=== PATIENT | female | born 1980 | race Caucasian/White ===

== ENCOUNTER 2019-04-18 12:12 | Emergency (ER) | payer MEDICARE, MEDICAID ==
[2019-04-18 13:11] VITALS: BP 113/68
[2019-04-18] MEDS ORDERED: Tetan/Diph/Pertus SYR(Tdap)* 0.5 ML SYR(BOOSTRIX) use SYR IM ONE (13:13)
--- NOTE | 2019-04-18 13:23 | UC ---
Laceration HPI - HPI Summary HPI Summary: 38 yo female presents with left index finger laceration. She tells me that about 1 MANAGER TALENT she sliced her left index finger while using a utility blade. Bandaged the area and came to . Last tetanus was last year. - History Of Current Complaint Chief Complaint: UCLaceration Stated Complaint: LACERATION LT INDEX FINGER Time Seen by Provider: 04/18/19 13:21 Hx Obtained From: Patient Hx Last Menstrual Period: 07/23/16 Laceration Location: Finger Mechanism Of Injury: Sharp Trauma Onset/Duration: Sudden Onset Severity: Mild Pain Intensity: 4 Pain Scale Used: 0-10 Numeric - Allergies/Home Medications Allergies/Adverse Reactions: Allergies Allergy/AdvReac Type Severity Reaction Status Date / Time MS Latex [Latex] Allergy Intermediate Rash Verified 04/18/19 13:11 Home Medications: Home Medications Fluticasone/Vilanterol MDI(NF) [Breo Ellipta MDI (NF)] 1 puff INH DAILY [History Confirmed 04/18/19] Levocetirizine Dihydrochloride [Xyzal Allergy 24Hr] 5 mg PO DAILY 04/18/19 [ History Confirmed 04/18/19] Topiramate [Topamax] 100 mg PO BID 04/18/19 [History Confirmed 04/18/19] PMH/Surg Hx/FS Hx/Imm Hx Respiratory History: Asthma - Surgical History Surgical History: Yes Surgery Procedure, Year, and Place: Gastric bypass 2010,. T&A. vein removal with cyst removed from L upper leg. - Family History Known Family History: Positive: Hypertension - Social History Lives: With Family Alcohol Use: Occasionally Substance Use Type: None Smoking Status (MU): Never Smoked Tobacco - Immunization History Most Recent Influenza Vaccination: Fall 2014 Most Recent Pneumonia Vaccination: 07/2015 Review of Systems All Other Systems Reviewed And Are Negative: Yes Constitutional: Positive: Negative Skin: Positive: Other - finger laceration Respiratory: Positive: Negative Cardiovascular: Positive: Negative Musculoskeletal: Positive: Negative Neurological: Positive: Negative Psychological: Positive: Negative Physical Exam - Summary Physical Exam Summary: GENERAL: NAD. WDWN. No pain distress. SKIN: LEFT index finger: distal tip with 5mm very superficial linear laceration well approximated at rest. No active bleeding, depth, or width appreciated. CHEST: No accessory muscle use. Breathing comfortably and in no distress. CV: Pulses intact. Cap refill <2seconds NEURO: Alert. PSYCH: Age appropriate behavior. Triage Information Reviewed: Yes Vital Signs: Initial Vital Signs Temp 97.9 F 04/18/19 13:06 Pulse 72 04/18/19 13:06 Resp 16 04/18/19 13:06 BP 113/68 04/18/19 13:06 Pulse Ox 100 04/18/19 13:06 Vital Signs Reviewed: Yes Laceration Repair - Laceration Repair 1 Description: Linear Laceration Size After Repair: Length (cm) - 0.5 Modified For Repair: No Cleansing Completed Via Routine Prep: Yes Closure Material: Skin Adhesive Closure Method: Single Layer Suture Of: Skin Laceration Course/Dx - Course/Dx Course Of Treatment: Wound was cleansed with NS and dermabond applied as wound is very superficial just partially through the epidermis. Band-aid applied. - Diagnosis Provider Diagnosis: Laceration of left index finger Discharge - Sign-Out/Discharge Documenting (check all that apply): Patient Departure All imaging exams completed and their final reports reviewed: No Studies - Discharge Plan Condition: Stable Disposition: HOME Patient Education Materials: Laceration (ED), Skin Adhesive Care (ED) Referrals: Jim Gilliland [Primary Care Provider] - Additional Instructions: If you develop a fever, shortness of breath, chest pain, new or worsening symptoms - please call your PCP or go to the ED immediately. Change the band-aid daily until well healed (likely 3-5 days) - Billing Disposition and Condition Condition: STABLE Disposition: Home
--- OUTSIDE RECORDS SUMMARY | 2019-04-18 18:07 | XMS REPORT | Continuity of Care Document ---
:1980 External Reference #:[id number] Author Name Fuad Potts MD Address [address] [place] [address] Care Team Providers Name Role Phone Blayne Patel NP - Nurse Practitioner Care Team Information [place] Problems Description No Information Available Social History Type Date Description Comments Sex Unknown Tobacco Use Start: Unknown Never Smoked Cigarettes ETOH Use Currently consumes alcohol socially Recreational Drug Use Never Used Drugs Tobacco Use Start: Unknown Patient has never smoked Smoking Status Reviewed: 04/13/19 Patient has never smoked Exercise Type/Frequency Does not exercise Allergies, Adverse Reactions, Alerts Active Allergies Reaction Severity Comments Date Augmentin yeast infection 04/13/2019 Latex 04/13/2019 Medications Active Medications SIG Qnty Indications Ordering Date Provider Mometasone Furoate one spray each Unknown 50mcg/Act nostril every day Suspension as needed Trazodone HCL 1 tab by mouth Unknown 50mg Tablets every day as needed Tizanidine HCL 1 by mouth three Unknown 4mg Capsules times a day as needed mdd 3 Levocetirizine 1 po daily Unknown Dihydrochloride 5mg Tablets Benadryl Allergy 1-2 by mouth Unknown 25mg Tablets every 6 hours as needed for hives. Coouitcmjk-Afwuczf-Kflcp 1 tab every 4 Unknown ine hours as needed 50-325-40mg Capsules for bagley. reference #: [id number] Breo Ellipta take 1 puff once Unknown 200-25mcg/Inh daily. Aerosol Gabapentin take one capsule Unknown 400mg Capsules by mouth three times a day Topiramate 1 po twice daily Unknown 100mg Tablets Proair HFA take 2 puffs Unknown 108(90Base) every 6 hours as mcg/Act Aerosol needed for shortness of breath. Duloxetine HCL 1 by mouth every Unknown 60mg Caps DR day Part Immunizations Description No Information Available Vital Signs Date Vital Result Comment 04/13/2019 2:32pm BP Systolic Sitting Left Arm 112 mmHg BP Diastolic Sitting Left Arm 72 mmHg Heart Rate 80 /min Respiratory Rate 20 /min Height 68 inches 5'8" Weight 196.00 lb BMI (Body Mass Index) 29.8 kg/m2 BSA (Body Surface Area) 2.03 m2 [place] body weight in kilograms 63 kg 04/13/2019 2:24pm BP Systolic Sitting Left Arm 110 mmHg BP Diastolic Sitting Left Arm 72 mmHg Heart Rate 80 /min Respiratory Rate 20 /min Height 68 inches 5'8" Weight 196.00 lb BMI (Body Mass Index) 29.8 kg/m2 BSA (Body Surface Area) 2.03 m2 [place] body weight in kilograms 63 kg O2 Saturation Level with Exercise 98 % Results Test Date Facility Test Result H/L Range Note Laboratory test 04/13/2019 [facility] D-Dimer, 0.44 ug/mL 1, [address] [place] [address] [phone] 1 Z01.818 2 <=0.49 ug/mL - Low likelihood of DIC, DVT or Pulmonary Embolism >0.49 ug/mL - Additional testing should be done to rule out DIC, DVT, or Pulmonary embolism as clinically indicated. ([facility] has established a 97.89% negative predictive value for thrombotic disease when a cutoff value of 0.5 ug/mL is used.) Procedures Date Code Description Status 04/13/2019 95719 EKG-Tracing And Report Completed Medical Devices Description No Information Available Encounters Description No Information Available Assessments Date Code Description Provider 04/13/2019 J45.20 Mild intermittent asthma, uncomplicated Fuad Potts MD 04/13/2019 J30.89 Other allergic rhinitis Fuad Potts MD 04/13/2019 R07.9 Chest pain, unspecified Fuad Potts MD 04/13/2019 Z01.818 Encounter for other preprocedural examination Fuad Potts MD Plan of Treatment Future Appointment(s):06/13/2019 1:30 pm - Fuad Potts MD at [facility] /2019 - Fuad Potts MDJ45.20 Mild intermittent asthma, uncomplicatedNew Orders :PFT With Bronchodilator, Scheduled: 04/27/19Comments:I am checking full PFTs. Continue with Breo and as needed albuterol. Advised to rinse mouth after using Breo to prevent thrush.Follow up:2 months.J30.89 Other allergic rhinitisComments :Minimal symptoms, continue with as needed nasal mometasone. Follows with Dr. Davy Colón.R07.9 Chest pain, unspecifiedComments:EKG is normal. Suspicion for PE is quite low, I am going to check a D-Dimer. This may be related to asthma and/or costochondritis. For now I am going to see if her symptoms improve on Breo and if not then I recommend a trial of NSAID and possibly cardiology consultation.Z01.818 Encounter for other preprocedural examination Functional Status Description No Information Available Mental Status Description No Information Available Referrals Description No Information Available
--- OUTSIDE RECORDS SUMMARY | 2019-04-18 18:07 | XMS REPORT | Continuity of Care Document ---
:1980 External Reference #:[id number] Author Name Davy Colón MD Address [address] [place] [address] Care Team Providers Name Role Phone Daphne Patel FNP Care Team Information It Sales Executive Unavailable Daphne Patel FNP Primary Care Physician Unavailable Payers Date Identification Numbers Payment Provider Subscriber Policy Number: [id number] [place] Pina Celena PayID: [id number] [address] [place] [address] Expires: 2018 Policy Number: [id number] Medicaid [place] Marie Pina Celena PayID: [id number] [address] [place] [address] Policy Number: [id number] [facility] Marie Pina Celena PayID: [id number] [address] [place] [address] Problems Active Problems Provider Date Uncomplicated moderate persistent asthma Davy oClón MD Onset: Allergic rhinitis Davy Colón MD Onset: 03/29/2019 Allergic rhinitis due to pollen Davy Colón MD Onset: 03/29/2019 Family History Date Family Member(s) Observation Comments General No Current Problems Social History Type Date Description Comments Sex Unknown Home Environment Does not have an air conditioner Home Environment There is no basement Home Environment The floors are tile Home Environment Uses electric heating Smoke-Free Home is smoke-free Pets 1 dog Tobacco Use Start: Unknown Patient has never smoked Tobacco Use Start: Unknown No Second Hand Smoke Exposure Smoking Status Reviewed: 03/29/19 No Second Hand Smoke Exposure Allergies, Adverse Reactions, Alerts Active Allergies Reaction Severity Comments Date Augmentin 03/29/2019 Medications Active Medications SIG Qnty Indications Ordering Provider Date Nasonex 2 intranasal 1units J30.1 Davy Ortega 03/29/2019 50mcg/Act puffs every day MD [facility] Suspension Xyzal 1 tab by mouth 30tabs J30.1 Davy Ortega 03/29/2019 5mg Tablets every day as MD [facility] needed Breo Ellipta inhale one puff 60units J30.1 Davy Yao. 03/29/2019 once a day MD [facility] 200-25mcg/Inh Aerosol Proair HFA 2 puffs every 4 8.500gm J30.1 Davy Ortega 03/29/2019 as needed MD [facility] 108(90Base) mcg/Act Aerosol Hydroxyzine HCL Take 1-2 Tablets Unknown By Mouth Three 10mg Tablets Times A Day as Needed Tizanidine HCL Take 1 Tablet By Unknown 2mg Mouth Everyday AT Tablets Bedtime Benzonatate Take 1 Tablet By Unknown 200mg Mouth Three Times Capsules A Day as Needed For Cough Gabapentin Take 2 Capsules Unknown 400mg By Mouth Three Capsules Times A Day Topiramate Take 1 Tablet By Unknown 100mg Mouth Twice A Day Tablets Tizanidine HCL Take 1 Tablet By Unknown 4mg Mouth Three Times Tablets A Day as Needed Trazodone HCL Take 1 Tablet By Unknown 50mg Mouth Every Day Tablets AT Bedtime as Needed Duloxetine HCL Take 1 Capsule By Unknown 60mg Mouth Every Day Caps DR Brooks Casarez/Acetamin Take 1 To 2 Unknown ophen/Caffeine Tablets By Mouth Every 6 Hours as 50-325-40mg Tablets Needed History Medications Cetirizine HCL 1 By Mouth Take AT Unknown - 03/29/2019 10mg Tablets Bedtime as Needed Cefuroxime Axetil Take 1 Tablet By Mouth Unknown - 03/29/2019 500mg Tablets Twice A Day Sulfamethoxazole/Trimethop Take 1 Tablet By Mouth Unknown - 03/29/2019 rim DS Twice A Day For 7 Days 800-160mg Tablets Prednisone Take 2 Tabs By Mouth Unknown - 03/29/2019 20mg Tablets Once Daily X 5 Days Mometasone Furoate [place] 2 Sprays Into Each Unknown - 2018 50mcg/Act Nostril Every Day Suspension Amoxicillin Take 1 Capsule By Mouth Unknown - 03/29/2019 500mg Capsules Three Times A Day Symbicort Inhale 2 Puffs Into The Unknown - 03/29/2019 160-4.5mcg/Act Aerosol Lungs Two Times Daily Prednisone Take 4 Tablets Every Day Unknown - 03/29/2019 10mg Tablets For 5 Days Fluconazole Take 1 Tab By Mouth Now Unknown - 03/29/2019 150mg Tablets And Repeat In 3 Days Azithromycin Take 2 Tablets By Mouth Unknown - 03/29/2019 250mg Tablets Today, Then Take 1 Tablet Daily For 4 Days Fluticasone Propionate Use 1 [place] In Each Unknown - 2018 50mcg/Act Nostril Twice Daily For Suspension Allergies, Nasal Congestion Proair HFA Inhale 2 Puffs Into The Unknown - 03/29/2019 108(90Base) mcg/Act Lungs Every 6 (Six) Aerosol Hours as Needed For Wheezing Vital Signs Date Vital Result Comment 03/29/2019 1:28pm BP Systolic 108 mmHg BP Diastolic 78 mmHg Height 68 inches 5'8" Weight 190.00 lb BMI (Body Mass Index) 28.9 kg/m2 Heart Rate 82 /min Respiratory Rate 18 /min O2 % BldC Oximetry 98 % Results Test Date Facility Test Result H/L Range Note Laboratory test 03/29/2019 [facility] < pending> finding [address] [place] [address] [phone] .CBC Auto Diff 03/29/2019 [facility]#Other <pending> [address] [place] [address] [phone] Laboratory test 03/29/2019 [facility] Total <pending> finding [address] [place] [address] [phone] Order 03/29/2019 [facility] Inhaler <pending> Training-Patient Demonstrates Competency Nitric Oxide <pending> PFT Supplies <pending> PFT With Bronchodilator <pending> Procedures Date Code Description Status 03/29/2019 77237 Nitric Oxide Gas Determination Completed 03/29/2019 78423 Demonstration/Eval,Of Patient Utilization Of Completed Aerosol,Nebulizer 03/29/2019 26945 Bronchodilation Responsiveness Spirometry Pre/Post Completed Bronchodil Adm Plan of Treatment 03/29/2019 - Davy Colón MDJ30.1 Allergic rhinitis due to pollenNew Medication:Nasonex 50 mcg/Act - 2 intranasal puffs every dayXyzal 5 mg - 1 tab by mouth every day as neededBreo Ellipta 200-25 mcg/Inh - inhale one puff once a dayProair HFA 108(90 Base) mcg/Act - 2 puffs every 4 as pqccugU49.89 Other allergic odngwzykC04.40 Moderate persistent asthma, uncomplicated
--- OUTSIDE RECORDS SUMMARY | 2019-04-18 18:07 | XMS REPORT | Continuity of Care Document ---
:1980 External Reference #:[id number] Author Name Delphine Kyle Care Team Providers Name Role Phone Blayne Patel NP Care Team Information Fence Rider Unavailable Blayne Patel NP Primary Care Physician Unavailable Payers Date Identification Numbers Payment Provider Subscriber Policy Number: [id number] [facility] Community Plan Marie Dallas PayID: [id number] [address] [place] [address] Expires: 2019 Policy Number: [id number] Medicare Marie Dallas PayID: [id number] [address] [place] [address] Expires: 2019 Policy Number: [id number] Daina Reyna PayID: [id number] [address] [place] [address] Effective: 2012 Policy Number: [id number] Daina David Reyna Expires: 2019 Group Name: [facility] [address] PayID: [id number] [place] [address] Family History Date Family Member(s) Observation Comments Father Diabetes Mellitus Type 2 Mother No Current Problems First Brother Hypertension Social History Type Date Description Comments Sex Unknown Marital Status Single Lives With Son Occupation Disabled H1/N1 - 2009 Tobacco Use Start: Unknown Never Smoked Cigarettes [...] every 6 hours as needed for hives. Gadmclokph-Mcimgeo-Wrkhu 1 tab every 4 Unknown ine hours as needed 50-325-40mg Capsules for bagley. reference #: [id number] Breo Ellipta take 1 puff once Unknown 200-25mcg/Inh daily. Aerosol Gabapentin take one capsule Unknown 400mg Capsules by mouth three times a day Topiramate 1 po twice daily Unknown 100mg Tablets Proair HFA take 2 puffs Unknown 108(90Base) every 6 hours as mcg/Act Aerosol needed for shortness of breath. Duloxetine HCL 1 by mouth every Unknown 60mg Caps DR Part Vital Signs Date Vital Result Comment 04/13/2019 2:32pm BP Systolic Sitting Left Arm 112 mmHg BP Diastolic Sitting Left Arm 72 mmHg Heart Rate 80 /min Respiratory Rate 20 /min Height 68 inches 5'8" Weight 196.00 lb BMI (Body Mass Index) 29.8 kg/m2 BSA (Body Surface Area) 2.03 m2 [place] body weight in kilograms 63 kg 04/13/2019 2:24pm BP Systolic Sitting Left Arm 110 mmHg BP Diastolic Sitting Left Arm 72 mmHg Heart Rate 80 /min Respiratory Rate 20 /min Height 68 inches 5'8" Weight 196.00 lb BMI (Body Mass Index) 29.8 kg/m2 BSA (Body Surface Area) 2.03 m2 [place] body weight in kilograms 63 kg O2 Saturation Level with Exercise 98 % Results Test Date Facility Test Result H/L Range Note Laboratory test 04/13/2019 [facility] D-Dimer, 0.44 ug/mL 1, [address] [place] [address] [phone] 1 Z01.818 2 <=0.49 ug/mL - Low likelihood of DIC, DVT or Pulmonary Embolism >0.49 ug/mL - Additional testing should be done to rule out DIC, DVT, or Pulmonary embolism as clinically indicated. ([facility] has established a 97.89% negative predictive value for thrombotic disease when a cutoff value of 0.5 ug/mL is used.) Procedures Date Code Description Status 10/05/2013 00 Finance Charge Completed 08/31/2013 00 Finance Charge Completed 09/12/2010 69894 Anesthesia, Hysteroscopy, Hystersalpingography Completed 03/05/2010 01820 EKG Interpretation And Report Only Completed 01/13/2010 97222 Echocardiogram Complete Completed 01/13/2010 79306 EKG Interpretation And Report Only Completed Plan of Treatment Future Appointment(s):06/13/2019 1:30 pm - Fuad Potts MD at [facility] /2019 - Fuad Potts MDJ45.20 Mild intermittent asthma, uncomplicatedNew Orders :PFT With Bronchodilator, Scheduled: 04/27/19Follow up:2 months.J30.89 Other allergic nawpanbbT11.9 Chest pain, unspecifiedNew Orders:EKG, Ordered: Z01.818 Encounter for other preprocedural examination
--- OUTSIDE RECORDS SUMMARY | 2019-04-18 18:08 | XMS REPORT | Continuity of Care Document ---
:1980 External Reference #:[id number] Author Name Sary Judd Care Team Providers Name Role Phone Daphne Patel FNP Care Team Information Senior Android Developer Unavailable Daphne Patel FNP Primary Care Physician Unavailable Payers Date Identification Numbers Payment Provider Subscriber Policy Number: [id number] [place] Marie [place] PayID: [id number] [address] [place] [address] Expires: 2018 Policy Number: [id number] Medicaid [place] Marie Dallas PayID: [id number] [address] [place] [address] Policy Number: [id number] [facility] Marie Dallas PayID: [id number] [address] [place] [address] Social History Type Date Description Comments Sex Unknown Home Environment Does not have an air conditioner Home Environment There is no basement Home Environment The floors are tile Home Environment Uses electric heating Smoke-Free Home is smoke-free Pets 1 dog Allergies, Adverse Reactions, Alerts Active Allergies Reaction Severity Comments Date Augmentin 03/29/2019 Medications Active Medications SIG Qnty Indications Ordering Provider Date Cetirizine HCL 1 By Mouth Take AT Unknown 10mg Bedtime as Needed Tablets Hydroxyzine HCL Take 1-2 Tablets Unknown 10mg By Mouth Three Tablets Times A Day as Needed Tizanidine HCL Take 1 Tablet By Unknown 2mg Mouth Everyday AT Tablets Bedtime Symbicort Inhale 2 Puffs Unknown Into The Lungs Two 160-4.5mcg/Act Times Daily Aerosol Benzonatate Take 1 Tablet By Unknown 200mg Mouth Three Times Capsules A Day as Needed For Cough Gabapentin Take 2 Capsules By Unknown 400mg Mouth Three Times Capsules A Day Topiramate Take 1 Tablet By Unknown 100mg Mouth Twice A Day Tablets Tizanidine HCL Take 1 Tablet By Unknown 4mg Mouth Three Times Tablets A Day as Needed Trazodone HCL Take 1 Tablet By Unknown 50mg Mouth Every Day AT Tablets Bedtime as Needed Proair HFA Inhale 2 Puffs Unknown 108(90Base) Into The Lungs mcg/Act Aerosol Every 6 (Six) Hours as Needed For Wheezing Duloxetine HCL Take 1 Capsule By Unknown 60mg Mouth Every Day Caps DR Brooks Casarez/Acetaminop Take 1 To 2 Unknown hen/Caffeine Tablets By Mouth Every 6 Hours as 50-325-40mg Tablets Needed History Medications Fluticasone Propionate Use 1 [place] In Each Unknown - 2018 50mcg/Act Nostril Twice Daily For Suspension Allergies, Nasal Congestion Azithromycin Take 2 Tablets By Mouth Unknown - 03/29/2019 250mg Tablets Today, Then Take 1 Tablet Daily For 4 Days Fluconazole Take 1 Tab By Mouth Now Unknown - 03/29/2019 150mg Tablets And Repeat In 3 Days Prednisone Take 4 Tablets Every Day Unknown - 03/29/2019 10mg Tablets For 5 Days Amoxicillin Take 1 Capsule By Mouth Unknown - 03/29/2019 500mg Capsules Three Times A Day Mometasone Furoate [place] 2 Sprays Into Each Unknown - 2018 50mcg/Act Nostril Every Day Suspension Prednisone Take 2 Tabs By Mouth Unknown - 03/29/2019 20mg Tablets Once Daily X 5 Days Sulfamethoxazole/Trimethop Take 1 Tablet By Mouth Unknown - 03/29/2019 rim DS Twice A Day For 7 Days 800-160mg Tablets Cefuroxime Axetil Take 1 Tablet By Mouth Unknown - 03/29/2019 500mg Tablets Twice A Day Vital Signs Date Vital Result Comment 03/29/2019 1:28pm BP Systolic 108 mmHg BP Diastolic 78 mmHg Height 68 inches 5'8" Weight 190.00 lb BMI (Body Mass Index) 28.9 kg/m2 Heart Rate 82 /min Respiratory Rate 18 /min O2 % BldC Oximetry 98 %
== END 2019-04-18 13:50 | disposition home or self-care (01) ==
LOC: UCCORT 12:12
DX: S61.211A Laceration without foreign body of left index finger without damage to nail, initial encounter (principal); W26.0XXA Contact with knife, initial encounter; Y92.9 Unspecified place or not applicable; J45.909 Unspecified asthma, uncomplicated
CPT/HCPCS: 12001; 99211; G0463